=== PATIENT | male | born 1985 | race African-American/Black ===

== ENCOUNTER 2017-05-30 09:28 | Inpatient (IN) | payer OTHER ==
[~2017-05-30] VITALS: Ht 188 cm; Wt 91.0 kg
[2017-05-30] MEDS ORDERED: SODIUM CHLORIDE 0.9% 250ML 250 ML IV STA (09:38)
[2017-05-30] MEDS ORDERED: SODIUM CHLORIDE 0.9% 1000ML 1,000 ML IV STA (09:38)
[2017-05-30] MEDS ORDERED: ASPIRIN 81 MG CHEW PO STA (09:38)
[2017-05-30 10:00] LABS: BASO % 0.3 %; BASO ABS # 0.02 K/uL (0-0.2); COMPLETE YES; EOS % 1.2 %; IG% 0.2 %; LYMPH % 24.5 %; LYMPH ABS # 1.61 K/uL (1.2-3.4); MEAN CELL VOLUME 91.3 fL (80-100); MEAN CORPUSCULAR HEMOGLOBIN 31.2 pg (25-34); MEAN CORPUSCULAR HGB CONC 34.2 g/dl (32-36); MEAN PLATELET VOLUME 8.4 fL (7.4-10.4); MONO % 7.3 %; NEUT % 66.5 %; PLATELET COUNT 233 K/uL (130-400); RED BLOOD COUNT 4.93 M/uL (4.7-6.1); WHITE BLOOD COUNT 6.58 K/uL (4.8-10.8)
--- NOTE | 2017-05-30 10:01 | EMERGENCY ROOM VISIT NOTE ---
History Report prepared by Herb: Judson Mariee Under the Supervision of: Dr. Sammi Friedman M.D. First contact with patient: 09:38 Chief Complaint: SYNCOPE Stated Complaint: SYNCOPE/ [facility] History of Present Illness The patient is a 31 year old male who presents to the Emergency Room from [facility] after an episode of syncope this morning, shortly prior to arrival. The patient states that he was sitting in a truck this morning getting ready to go to work when he lost consciousness and fell out of the vehicle. He hit his left elbow when falling from the truck, but has no other traumatic injuries. He estimates that he was unconscious for roughly 5 minutes. He was not exerting himself prior to the episode, and he experienced no chest pain or shortness of breath at any time. He denies any headache or vomiting at any point as well. 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 A total of 10 systems reviewed and were otherwise negative. Past Medical & Surgical Medical Problems: (1) Syncope No pertinent past medical history Family History Patient denies any family history of cardiac disease. Social History Alcohol Use: none Drug Use: none Housing Status: other ([facility]) Occupation Status: employed ([employer]) Current/Historical Medications No Active Prescriptions or Reported Meds Allergies Coded Allergies: No Known Allergies (Unverified , 05/30/17) Physical Exam Vital Signs Date Time Temp Pulse Resp B/P (MAP) Pulse Ox O2 Delivery O2 Flow Rate FiO2 05/30/17 10:51 100 Room Air 05/30/17 10:08 69 26 100 05/30/17 10:03 65 24 100 05/30/17 10:00 133/87 05/30/17 09:59 127/88 05/30/17 09:58 59 21 116/73 100 05/30/17 09:58 60 116/73 Room Air 73 127/88 73 133/87 69 05/30/17 09:53 68 30 99 05/30/17 09:48 75 20 100 05/30/17 09:43 76 29 99 05/30/17 09:43 36.8 82 30 154/70 99 Room Air 05/30/17 09:43 82 8/14/17 09:39 154/70 Physical Exam Vital signs reviewed. General: Well-appearing young male, in no significant distress. HEENT: No scleral icterus, PERRLA, neck supple. Atraumatic. Cardiovascular: Regular rate and rhythm, no extra sounds. Pulmonary: Clear to auscultation bilaterally, normal work of breathing. Abdomen: Soft, nontender, nondistended, positive bowel sounds. Musculoskeletal: Atraumatic, no peripheral edema. Neurologic: Patient awake alert and oriented x 3, full strength in all 4 extremities. Cranial nerves 2 through 12 grossly intact. Skin: Warm, dry, no rash Medical Decision & Procedures ER Provider Diagnostic Interpretation: Radiology results as stated below per my review and radiologist interpretation: CHEST ONE VIEW PORTABLE CLINICAL HISTORY: CP dyspnea COMPARISON STUDY: No previous studies for comparison. FINDINGS: The bones soft tissues and hemidiaphragms are normal. The cardiomediastinal silhouette is normal. The lungs are clear. The pulmonary vasculature is normal. IMPRESSION: Negative chest. The above report was generated using voice recognition software. It may contain grammatical, syntax or spelling errors. Electronically signed by: Trenton Cameron M.D. 05/30/2017 10:07 AM Dictated Date/Time: 05/30/2017 10:07 AM Laboratory Results 05/30/17 09:46 Test 05/30/17 09:46 05/30/17 09:55 Prothrombin Time 10.5 SECONDS (9.0-12.0) Prothromb Time International Ratio 1.0 (0.9-1.1) Activated Partial Thromboplast Time 27.0 SECONDS (21.0-31.0) Partial Thromboplastin Ratio 1.0 Anion Gap 5.0 mmol/L (3-11) Est Creatinine Clear Calc Drug Dose 105.6 ml/min Estimated GFR () 94.1 Estimated GFR (Non- 81.2 BUN/Creatinine Ratio 14.8 (10-20) Calcium Level 9.1 mg/dl (8.5-10.1) Magnesium Level 1.9 mg/dl (1.8-2.4) Total Bilirubin 0.9 mg/dl (0.2-1) Direct Bilirubin 0.2 mg/dl (0-0.2) Aspartate Amino Transf (AST/SGOT) 35 U/L (15-37) Alanine Aminotransferase (ALT/SGPT) 42 U/L (12-78) Alkaline Phosphatase 110 U/L (45-117) Total Protein 6.8 gm/dl (6.4-8.2) Albumin 3.6 gm/dl (3.4-5.0) Urine Opiates Screen NEG (NEG) Urine Methadone, Qualitative NEG (NEG) Urine Barbiturates NEG (NEG) Urine Phencyclidine (PCP) Level NEG (NEG) Ur Amphetamine/Methamphetamine NEG (NEG) MDMA (Ecstasy) Screen NEG (NEG) Urine Benzodiazepines Screen NEG (NEG) Urine Cocaine Metabolite NEG (NEG) Urine Marijuana (THC) NEG (NEG) Bedside D-Dimer 433 ng/mlFEU (0-450) Bedside Troponin I 0.200 ng/ml (0-0.045) Laboratory results per my review. Medications Administered Medications (Trade) Dose Ordered Sig/Ganesh Route Start Time Stop Time Status Last Admin Dose Admin Aspirin (Aspirin Chew) 324 mg NOW STAT PO 05/30/17 09:38 05/30/17 09:41 DC 05/30/17 10:02 324 MG Sodium Chloride 1,000 ml @ 150 mls/hr [id number] STAT IV 05/30/17 09:38 05/30/17 12:37 DC 05/30/17 10:04 150 MLS/HR Sodium Chloride 1,000 ml @ 75 mls/hr [id number] IV 05/30/17 10:57 05/31/17 21:34 DC 05/31/17 13:37 75 MLS/HR ECG Indication: syncope Rate (beats per minute): 67 Rhythm: normal sinus Findings: no ectopy, other (Right-word axis, J point elevation, early repolarization vs. STEMI) ED Course 0938: Ordered Sodium Chloride 1000 mL @ 150 mL/hr IV, Sodium Chloride 250 mL @ 999 mL/hr IV, Aspirin 324 mg PO. 0947: Past medical records reviewed. The patient was evaluated in room A2. A complete history and physical examination was performed. 1019: Patient's laboratory studies showed an elevated troponin at this time. 1035: I discussed the case with Dr. Lisa Hopkins [facility] hospitalist at this time. She will evaluate the patient for further treatment. Medical Decision Differential diagnosis: Etiologies such as vasovagal event, infection, hypoglycemia, electrolyte abnormalities, cardiac sources, intracerebral event, toxicologic, neurologic, as well as others were entertained. This patient was evaluated and appeared to be in no significant distress. IV access was obtained and laboratory work was drawn. Pt was placed on the threat monitoring analyst. She was given aspirin 324 mg to chew. EKG is concerning for ST elevations, however he has no pain at this time. It is possible that these are J-point elevations and nonischemic. Laboratory work reveals normal electrolytes. Troponin is mildly elevated 0.2. Patient was again evaluated and pain-free. Repeat EKG is similar with no change in morphology. Dr. Joseph of cardiology was consulted. He evaluated the patient in the emergency department. An echo has been ordered at the bedside. The patient was made aware of the findings. He will be evaluated by the hospitalist service for admission and further management. Consults Time Called: 1030 Consulting Physician: Dr. Lisa ROCHA hospitalist Returned Call: 1035 I discussed the case with Dr. Lisa ROCHA hospitallicha at this time. She will evaluate the patient for further treatment. Impression Primary Impression: Syncope Additional Impressions: Elevated troponin ST elevation Scribe Attestation The scribe's documentation has been prepared under my direction and personally reviewed by me in its entirety. I confirm that the note above accurately reflects all work, treatment, procedures, and medical decision making performed by me. Departure Information Dispostion Being Evaluated By Hospitalist Prescriptions No Active Prescriptions or Reported Meds Referrals No Doctor, Assigned (PCP) Patient Instructions My [facility] Problem Qualifiers Primary Impression: Syncope Syncope type: unspecified Qualified Codes: R55 - Syncope and collapse
--- NOTE | 2017-05-30 10:08 | DIAGNOSTIC IMAGING REPORT ---
CHEST ONE VIEW PORTABLE CLINICAL HISTORY: CP dyspnea COMPARISON STUDY: No previous studies for comparison. FINDINGS: The bones soft tissues and hemidiaphragms are normal. The cardiomediastinal silhouette is normal. The lungs are clear. The pulmonary vasculature is normal. IMPRESSION: Negative chest. The above report was generated using voice recognition software. It may contain grammatical, syntax or spelling errors. Electronically signed by: Trenton Cameron M.D. 05/30/2017 10:07 AM Dictated Date/Time: 05/30/2017 10:07 AM
[2017-05-30 10:09] LABS: PROTHROMBIN TIME (PATIENT) 10.5 SECONDS (9.0-12.0)
[2017-05-30 10:14] LABS: POINT OF CARE TROPONIN I 0.2 ng/ml (0-0.045)
[2017-05-30 10:18] LABS: BUN/CREATININE RATIO 14.8 (10-20); CALCIUM 9.1 mg/dl (8.5-10.1); CREATININE 1.2 mg/dl (0.60-1.40); MAGNESIUM 1.9 mg/dl (1.8-2.4); POTASSIUM 4.1 mmol/L (3.5-5.1)
[2017-05-30 10:23] LABS: CKMB/CK RATIO 0.5 (0-3.0)
[2017-05-30 10:51] VITALS: O2SAT 100; Ht 188 cm; Wt 91.0 kg
[2017-05-30] MEDS ORDERED: NITROGLYCERIN 0.4 MG SL PER TAB CHARGE SL PRN (11:00)
[2017-05-30] MEDS ORDERED: ACETAMINOPHEN 325 MG TAB PO PRN (11:00)
[2017-05-30 11:56] LABS: BENZODIAZEPINE, URINE NEG (NEG); COCAINE,URINE NEG (NEG); PHENCYCLIDINE, URINE NEG (NEG)
[2017-05-30 12:14] LABS: CKMB/CK RATIO 0.6 (0-3.0)
--- NOTE | 2017-05-30 12:14 | Medical Student: [facility] ---
Med Student History & Physical Date & Time of Service: May 30, 2017 at 12:08 Chief Complaint: Syncope Primary Care Physician: Zoila JACOB History of Present Illness Source: patient Vanesa is a 31 year old man who presents to the Emergency Room from [facility] after an episode of syncope this morning, shortly prior to arrival. He reports that he was sitting in a truck this morning waiting to start work, took a drink of water, then "things started to go black," and he fell out of the truck onto the ground, landing on his right arm. He reports being unconsciousness for only a few seconds, but had a 5 minute episode of confusion and inability to answer the questions of people around him such as where he was or what his birthday is. He states that he remembers the whole incident. He reported that during this same time, he had weakness in his right hand that resolved by the time he arrived to the ED. He denied headache, chest pain, shortness of breath, palpitations, nausea, vomiting , numbness, paralysis, weakness other than the transient episode in his right hand. Past Medical/Surgical History Medical Problems: (1) Elevated troponin Status: Acute Social History Smoking Status: Current Some Day Smoker (estimates 1 pack every 3 days) Smokeless Tobacco Use: No Alcohol Use: none Drug Use: none Occupational Status: employed ([employer]) Allergies Coded Allergies: No Known Allergies (Unverified , 05/30/17) Medications No Active Prescriptions or Reported Meds Review of Systems Constitutional: No fever, No chills, No sweats Eyes: No worsening of vision, No problem reported ENT: No hearing loss, No problem reported Respiratory: No cough, No shortness of breath Cardiovascular: No chest pain, No palpitations Abdomen: No nausea, No vomiting, No diarrhea, No constipation Musculoskeletal: No joint pain, No muscle pain Genitourinary - Male: No hematuria, No dysuria Neurologic: No paralysis, No weakness, No numbness/tingling Hematologic / Lymphatic: No abnormal bleeding/bruising, No clotting problems Integumentary: No rash, No itch Allergic / Immunologic: No environmental allergies, No seasonal allergies, No food allergies Physical Exam Vital Signs (24 Hours) Last Vital Signs Documentation Date Time Temp Pulse Resp B/P (MAP) Pulse Ox O2 Delivery O2 Flow Rate FiO2 05/30/17 16:00 Room Air 05/30/17 15:41 37.1 53 18 141/96 (111) 98 Date Time Temp Pulse Resp B/P (MAP) Pulse Ox O2 Delivery O2 Flow Rate FiO2 05/30/17 10:51 100 Room Air 05/30/17 10:08 69 26 100 05/30/17 10:03 65 24 100 05/30/17 10:00 133/87 05/30/17 09:59 127/88 05/30/17 09:58 59 21 116/73 100 05/30/17 09:58 60 116/73 Room Air 73 127/88 73 133/87 69 05/30/17 09:53 68 30 99 05/30/17 09:48 75 20 100 05/30/17 09:43 76 29 99 05/30/17 09:43 36.8 82 30 154/70 99 Room Air 05/30/17 09:43 82 05/30/17 09:39 154/70 General Appearance: WD/WN, no apparent distress Head: normocephalic, atraumatic Eyes: normal inspection, PERRL, EOMI ENT: normal ENT inspection, hearing grossly normal, TMs normal, pharynx normal Neck: supple, no adenopathy, no carotid bruits, trachea midline Respiratory/Chest: chest non-tender, lungs clear, normal breath sounds, no respiratory distress, no accessory muscle use Cardiovascular: regular rate, rhythm, no edema, no gallop, no murmur, normal peripheral pulses Abdomen/GI: normal bowel sounds, non tender, no organomegaly, no pulsatile mass Extremities/Musculoskelatal: normal inspection, no calf tenderness, + pertinent finding (tazer gaines on bilateral pretibial area, abrasions right elbow) Neurologic/Psych: crew clerk II-XII nml as tested, no motor/sensory deficits, alert, normal mood/affect, normal reflexes, oriented x 3 Skin: normal color, warm/dry, no rash Diagnostics Laboratory Results Test 05/30/17 09:46 05/30/17 09:55 05/30/17 11:31 White Blood Count 6.58 Red Blood Count 4.93 Hemoglobin 15.4 Hematocrit 45.0 Mean Corpuscular Volume 91.3 Mean Corpuscular Hemoglobin 31.2 Mean Corpuscular Hemoglobin Concent 34.2 Platelet Count 233 Mean Platelet Volume 8.4 Neutrophils (%) (Auto) 66.5 Lymphocytes (%) (Auto) 24.5 Monocytes (%) (Auto) 7.3 Eosinophils (%) (Auto) 1.2 Basophils (%) (Auto) 0.3 Neutrophils # (Auto) 4.38 Lymphocytes # (Auto) 1.61 Monocytes # (Auto) 0.48 Eosinophils # (Auto) 0.08 Basophils # (Auto) 0.02 RDW Standard Deviation 42.1 RDW Coefficient of Variation 12.6 Immature Granulocyte % (Auto) 0.2 Immature Granulocyte # (Auto) 0.01 Prothrombin Time 10.5 Prothrombin Time INR 1.0 PTT 27.0 Partial Thromboplastin Ratio 1.0 Sodium Level 140 Potassium Level 4.1 Chloride Level 106 Carbon Dioxide Level 29 Anion Gap 5.0 Blood Urea Nitrogen 18 Creatinine 1.20 Est Creatinine Clear Calc Drug Dose 105.6 Estimated GFR () 94.1 Estimated GFR (Non- 81.2 BUN/Creatinine Ratio 14.8 Random Glucose 87 Calcium Level 9.1 Magnesium Level 1.9 Total Bilirubin 0.9 Direct Bilirubin 0.2 Aspartate Amino Transferase (AST) 35 Alanine Aminotransferase (ALT) 42 Alkaline Phosphatase 110 Total Creatine Kinase 735 713 Creatine Kinase MB 3.7 4.4 Creatine Kinase MB Ratio 0.5 0.6 Total Protein 6.8 Albumin 3.6 Urine Opiates Screen NEG Urine Methadone, Qualitative NEG Urine Barbiturates NEG Urine Phencyclidine (PCP) Level NEG Ur Amphetamine/Methamphetamine NEG MDMA (Ecstasy) Screen NEG Urine Benzodiazepines Screen NEG Urine Cocaine Metabolite NEG Urine Marijuana (THC) NEG POC D-Dimer 433 POC Troponin I 0.200 Troponin I 0.275 Results Past 24 Hours Test 05/30/17 09:46 05/30/17 09:55 05/30/17 10:57 05/30/17 11:31 Range/Units White Blood Count 6.58 4.8-10.8 K/uL Red Blood Count 4.93 4.7-6.1 M/uL Hemoglobin 15.4 14.0-18.0 g/dL Hematocrit 45.0 42-52 % Mean Corpuscular Volume 91.3 80-100 fL Mean Corpuscular Hemoglobin 31.2 25-34 pg Mean Corpuscular Hemoglobin Concent 34.2 32-36 g/dl Platelet Count 233 130-400 K/uL Mean Platelet Volume 8.4 7.4-10.4 fL Neutrophils (%) (Auto) 66.5 % Lymphocytes (%) (Auto) 24.5 % Monocytes (%) (Auto) 7.3 % Eosinophils (%) (Auto) 1.2 % Basophils (%) (Auto) 0.3 % Neutrophils # (Auto) 4.38 1.4-6.5 K/uL Lymphocytes # (Auto) 1.61 1.2-3.4 K/uL Monocytes # (Auto) 0.48 0.11-0.59 K/uL Eosinophils # (Auto) 0.08 0-0.5 K/uL Basophils # (Auto) 0.02 0-0.2 K/uL RDW Standard Deviation 42.1 36.4-46.3 fL RDW Coefficient of Variation 12.6 11.5-14.5 % Immature Granulocyte % (Auto) 0.2 % Immature Granulocyte # (Auto) 0.01 0.00-0.02 K/uL Prothrombin Time 10.5 9.0-12.0 SECONDS Prothromb Time International Ratio 1.0 0.9-1.1 Activated Partial Thromboplast Time 27.0 21.0-31.0 SECONDS Partial Thromboplastin Ratio 1.0 Sodium Level 140 136-145 mmol/L Potassium Level 4.1 3.5-5.1 mmol/L Chloride Level 106 98-107 mmol/L Carbon Dioxide Level 29 21-32 mmol/L Anion Gap 5.0 3-11 mmol/L Blood Urea Nitrogen 18 7-18 mg/dl Creatinine 1.20 0.60-1.40 mg/dl Est Creatinine Clear Calc Drug Dose 105.6 ml/min Estimated GFR () 94.1 Estimated GFR (Non- 81.2 BUN/Creatinine Ratio 14.8 10-20 Random Glucose 87 70-99 mg/dl Calcium Level 9.1 8.5-10.1 mg/dl Magnesium Level 1.9 1.8-2.4 mg/dl Total Bilirubin 0.9 0.2-1 mg/dl Direct Bilirubin 0.2 0-0.2 mg/dl Aspartate Amino Transf (AST/SGOT) 35 15-37 U/L Alanine Aminotransferase (ALT/SGPT) 42 12-78 U/L Alkaline Phosphatase 110 45-117 U/L Total Creatine Kinase 735 39-308 U/L Creatine Kinase MB 3.7 0.5-3.6 ng/ml Creatine Kinase MB Ratio 0.5 0-3.0 Total Protein 6.8 6.4-8.2 gm/dl Albumin 3.6 3.4-5.0 gm/dl Urine Opiates Screen NEG NEG Urine Methadone, Qualitative NEG NEG Urine Barbiturates NEG NEG Urine Phencyclidine (PCP) Level NEG NEG Ur Amphetamine/Methamphetamine NEG NEG MDMA (Ecstasy) Screen NEG NEG Urine Benzodiazepines Screen NEG NEG Urine Cocaine Metabolite NEG NEG Urine Marijuana (THC) NEG NEG Bedside D-Dimer 433 0-450 ng/mlFEU Bedside Troponin I 0.200 0-0.045 ng/ml Diagnostic Radiology Echocardiogram 1. Normal left ventricular size with low-normal systolic function. Estimated EF 55%. No regional wall motion abnormalities. Mild left ventricular hypertrophy. No significant diastolic dysfunction. 2. No significant valvular abnormalities. 3. Normal estimated right ventricular systolic pressure; 20 mm Hg. 4. No prior study available for comparison. CXR normal EKG ST elevations in V2-V5 Sinus Bradycardia Impression Assessment and Plan Vanesa Li is a 31 year old male with no past medical history admitted for evaluation of syncope and elevated troponin levels. 1. Syncope Vasovagal etiology: Patient denies coughing, vomiting, defecation, urination at time of syncope, observed needle stick in his own arm without an adverse reaction Orthostatic: Orthostatic vital signs normal Cardiovascular: Elevated [id number] troponin is 0.2 on admission, most recent is 0.275. -CK-MB 3.7 on admission to 4.4 most recent. -CPK 735 trending down to 713 -Tox screen negative, making cocaine induced vasospasm unlikely. His only other risk factor for coronary artery disease is smoking. -Echocardiogram revealed EF of 55% and no major structural abnormalities, HCOM unlikely -Nonspecific ECG changes, obtain routine ECG -Admit to telemetry: If nothing is found on telemetry, consider an event monitor, although this may prove difficult with the patients status of being an inmate consider cardiac Catheterization if patients develops chest pain or if troponin trends upwards -Start aspirin 81mg Daily Neurologic: Unlikely etiology given age, negative past medical history of DM, CVA, 2. Right elbow abrasion -exam negative for evidence of fracture. Full strength and ROM -Keep wound clean and covered -consider xray if has worsening pain 3. Current Smoker -assistant counsel on smoking cessation -do not provide nicotine patch due to risk of excess catecholamines DVT Prophylaxis- heparin subcutaneous and SCDs Disposition- back to [facility] when medically stable, approximately 1-2 days Level of Care Telemetry Advanced Directives Existing Living Will: No Existing Power of Dental Hygienist Mobile Coordinator: No Resuscitation Status FULL RESUSCITATION DVT Prophylaxis unfractionated heparin SQ
[2017-05-30 12:18] VITALS: BP 139/84; PULSE 60; TEMP 36.9; O2SAT 95
--- NOTE | 2017-05-30 13:01 | ECHOCARDIOGRAM REPORT ---
*NOTICE TO RECEIVING [employer] This information is strictly Confidential and protected under [place] law. [place] law prohibits you from making any further disclosure of this information unless further disclosure is expressly permitted by the written consent of the person to whom it pertains or is authorized by law. A general authorization for the release of medical or other information is not sufficient for this purpose. Hospital accepts no responsibility if the information is made available to any other person, INCLUDING THE PATIENT. Interpretation Summary * Name: JAY GALVEZ [id number] Study Date: 05/30/2017 10:58 AM BP: 133/87 mmHg * Patient Location: ED HR: 69 * : 1985 (M/d/yyyy) Gender: Male Height: 74 in * Age: 31 yrs Ethnicity: AA Weight: 215 lb * Referring Physician: WESTON * Performed By: Kristyn Posey RDCS * * Reason For Study: SYNCOPE * BSA: 2.2 m2 * -- Conclusions -- * 1. Normal left ventricular size with low-normal systolic function. Estimated EF 55%. No regional wall motion abnormalities. Mild left ventricular hypertrophy. No significant diastolic dysfunction. * 2. No significant valvular abnormalities. * 3. Normal estimated right ventricular systolic pressure; 20 mm Hg. * 4. No prior study available for comparison. Procedure Details * A complete two-dimensional transthoracic echocardiogram was performed (2D, M-mode, Doppler and color flow Doppler). Left Ventricle * Normal left ventricular size with low-normal systolic function. Estimated EF 55%. No regional wall motion abnormalities. Mild left ventricular hypertrophy. No significant diastolic dysfunction. Right Ventricle * The right ventricle is normal in size and function. * The right ventricular systolic function is normal as assessed by tricuspid annular plane systolic excursion (TAPSE) (normal >1.5 cm). Atria * The left atrial size is normal. * Right atrial size is normal. * There is no evidence of atrial septal defect, but resolution does not allow assessment for a patent foramen ovale. Mitral Valve * The mitral valve leaflets appear normal. There is no evidence of stenosis, fluttering, or prolapse. * There is trace mitral regurgitation. Tricuspid Valve * The tricuspid valve is not well visualized, but is grossly normal. * There is no tricuspid stenosis. * There is trace tricuspid regurgitation. Aortic Valve * The aortic valve is trileaflet. * No hemodynamically significant valvular aortic stenosis. * No aortic regurgitation is present. Pulmonic Valve * The pulmonary valve is inadequately visualized, but the Doppler data is adequate for interpretation. * There is no pulmonic valvular stenosis. * There is no significant pulmonary regurgitation. Great Vessels * The aortic root is normal size. Pericardium/Pleural * There is no pericardial effusion. Great Vessels * Normal inferior vena cava size and collapsability with sniff indicates a normal right atrial pressure of 3 mmHg MMode 2D Measurements and Calculations IVSd 1.1 cm IVSs 1.6 cm LVIDd 4.9 cm LVIDs 3.3 cm LVPWd 1.3 cm LVPWs 1.9 cm IVS/LVPW 0.87 FS 33.3 % EDV(Teich) 114.4 ml ESV(Teich) 43.7 ml EF(Teich) 61.8 % EDV(cubed) 119.8 ml ESV(cubed) 35.5 ml EF(cubed) 70.4 % % IVS thick 46.2 % % LVPW thick 47.1 % LV mass(C)d 226.8 grams LV mass(C)dI 101.2 grams/m\S\2 LV mass(C)s 231.2 grams LV mass(C)sI 103.2 grams/m\S\2 SV(Teich) 70.7 ml SI(Teich) 31.6 ml/m\S\2 SV(cubed) 84.3 ml SI(cubed) 37.6 ml/m\S\2 Ao root diam 3.1 cm Ao root area 7.3 cm\S\2 LA dimension 3.3 cm LA/Ao 1.1 LVAd ap4 42.4 cm\S\2 LVLd ap4 9.8 cm EDV(MOD-sp4) 153.6 ml EDV(sp4-el) 155.9 ml LVAs ap4 27.1 cm\S\2 LVLs ap4 8.7 cm ESV(MOD-sp4) 73.9 ml ESV(sp4-el) 71.4 ml EF(MOD-sp4) 51.9 % EF(sp4-el) 54.2 % LVAd ap2 45.5 cm\S\2 LVLd ap2 10.4 cm EDV(MOD-sp2) 171.0 ml EDV(sp2-el) 168.6 ml LVAs ap2 26.5 cm\S\2 LVLs ap2 8.5 cm ESV(MOD-sp2) 72.5 ml ESV(sp2-el) 70.0 ml EF(MOD-sp2) 57.6 % EF(sp2-el) 58.5 % LVLd %diff 6.0 % EDV(MOD-bp) 165.9 ml LVLs %diff -2.49 % ESV(MOD-bp) 73.9 ml EF(MOD-bp) 55.4 % SV(MOD-sp4) 79.7 ml SI(MOD-sp4) 35.5 ml/m\S\2 SV(MOD-sp2) 98.5 ml SI(MOD-sp2) 43.9 ml/m\S\2 SV(MOD-bp) 91.9 ml SI(MOD-bp) 41.0 ml/m\S\2 SV(sp4-el) 84.5 ml SI(sp4-el) 37.7 ml/m\S\2 SV(sp2-el) 98.5 ml SI(sp2-el) 44.0 ml/m\S\2 Doppler Measurements and Calculations MV E max carissa 73.5 cm/sec MV A max carissa 33.1 cm/sec MV E/A 2.2 MV dec time 0.26 sec Ao V2 max 124.2 cm/sec Ao max PG 6.2 mmHg Ao max PG (full) 3.0 mmHg LV V1 max PG 3.2 mmHg LV V1 max 88.8 cm/sec TV E max carissa 55.8 cm/sec TR max carissa 207.6 cm/sec RVSP(TR) 20.2 mmHg RAP systole 3.0 mmHg
[2017-05-30] MEDS: SODIUM CHLORIDE 0.9% 1000ML 1,000 ML IV SCH (14:19)
[2017-05-30] MEDS: HEPARIN SOD 5000 UNIT/0.5 ML CARP SQ SCH ×2 (14:20→21:38)
--- NOTE | 2017-05-30 15:19 | CARDIOLOGY CONSULTATION ---
DATE OF CONSULTATION: 05/30/2017 TIME: 14:32 p.m. CONSULTING PHYSICIAN: Dr. Friedman of the Emergency Department and also Dr. Gonzalez of the hospitalist service. REASON FOR CONSULTATION: Syncope, elevated troponin and abnormal ECG. HISTORY OF PRESENT ILLNESS: Mr. Farley is a pleasant 31-year-old gentleman who was evaluated in the Emergency Department this morning at approximately 10:40 a.m. for a recent episode of syncope with ST elevations on ECG and mildly elevated troponin levels. He states that he has no significant past medical history and denies taking any medications. He is currently incarcerated at [facility] and was sitting in a pickup truck earlier this morning is completely asymptomatic before he had a syncopal event. The truck was at rest but the door was opened and he fell out of the truck. It was witnessed by guards and reported that he was unconscious/unresponsive for approximately 5 minutes. He denies any presyncopal symptoms such as chest discomfort, shortness of breath, palpitations, lightheadedness or any other symptom. When he awakened, he states that his right arm was a bit numb and he had trouble talking. These symptoms resolved within a few minutes and he felt back to his usual self. He is completely asymptomatic currently. While asymptomatic, he had an ECG done and was found to have anterolateral ST elevations, which remained on an ECG repeated approximately 45 minutes later. His heart rate at the time EMS evaluated him was reported to 74 beats per minute with a blood pressure 172/84 mmHg, and an oxygen saturation of 97% on room air. He remains asymptomatic and denies chest pain, shortness of breath, palpitations, edema, leg pain, nausea, vomiting, abdominal pain, diarrhea, melena, hematochezia, hematuria. He exercises regularly, lifting weights and playing sports such as basketball and hand ball. He denies any exertional symptoms with his usual activities for him. He did have gastrointestinal issues for approximately 5 days in the first week of April. He had nausea and vomiting. He states that he was told that it was food poisoning, but these symptoms have since completely resolved. He denies a history of syncope. He denies any recent drug use such as cocaine and also denies alcohol. REVIEW OF SYSTEMS: As above and review of systems otherwise negative and unremarkable. PAST MEDICAL HISTORY: None, according to patient. HOME MEDICATIONS: None. SOCIAL HISTORY: He smokes tobacco products since age 16. He states that he rolls his own cigarettes and 1 pack of tobacco lasts for 3 days. He denies alcohol. He denies drug abuse. He is originally from [place]. He has been incarcerated for approximately 4 years and hopes be released in approximately 1 year. FAMILY HISTORY: No known premature CAD in first degree relatives. No known sudden cardiac . PHYSICAL EXAMINATION: VITAL SIGNS: Temperature 36.9 degrees, heart rate 60 beats per minute, respiration rate 18, blood pressure 139/84 mmHg, oxygen saturation 95-100% on room air. Weight 97.8 kg. GENERAL: In no acute distress. He is alert and oriented. HEENT: Anicteric sclerae. NECK: No appreciable JVD. No bruits. Normal carotid upstrokes bilaterally. CARDIAC: PMI was not displaced. There was no ventricular heave. Regular, normal S1, S2. No audible murmurs, rubs or gallops. LUNGS: Clear to auscultation bilaterally without wheezes, rales or rhonchi. ABDOMEN: Soft, nontender, nondistended, normoactive bowel sounds, no bruits noted. EXTREMITIES: No cyanosis or edema. No palpable cords. 2+ radial pulses bilaterally. 2+ dorsalis pedis pulses bilaterally. PSYCHIATRIC: Affect appears appropriate. IMAGING DATA: ECGs personally reviewed. ECG at 9:37 a.m. - normal sinus rhythm at 67 beats per minute. Anterolateral ST elevation. Repeat ECG at 10:21 a.m. demonstrated sinus bradycardia at 56 beats per minute. Anterolateral ST elevations were noted. Prehospital ECG is also reviewed with anterolateral ST elevation. Chest x-ray image personally reviewed and no infiltrate. Radiology has interpreted this as negative chest x-ray. LABORATORY DATA: White blood cell count 6.58, hemoglobin 15.4, platelets 233. Sodium 140, potassium 4.1, BUN 18, creatinine 1.2. CK-MB 4.4. Troponin point of care 0.2 and repeat troponin was 0.275. Albumin 3.6, AST 35, ALT 42, magnesium 1.9. INR 1. D-dimer negative. Tox screen was ordered and negative. ASSESSMENT AND PLAN: 1. Syncope: Etiology uncertain. He had no symptoms prior to his episode to suggest vasovagal. He had been eating and drinking his usual amount of oral intake and therefore hypovolemia does not appear to be the cause. Arrhythmia is a possibility. Recommend continue his telemetry. We will also discuss with electrophysiology about potential for a loop recorder or other monitoring. No significant structural findings on echocardiogram. 2. Elevated troponins: Would recommend trending troponins until peaked. He has no anginal symptoms. He is very active and his only risk factor for coronary disease that is known at this time is tobacco abuse. It is not likely that he has significant ischemic heart disease. No urgent indication for cardiac catheterization, given the fact that he is completely asymptomatic at this time. We did discuss risks and benefits of cardiac catheterization and would further consider this if his troponins become significantly elevated or if he should have symptoms of angina. Elevation of his troponin is may be of his syncopal event if he was hypotensive or if he had arrhythmia. Continue to follow. 3. Abnormal electrocardiogram: He does have ST elevations in the anterolateral leads which may represent early repolarization, especially given the fact that he is completely asymptomatic and these elevations are persistent despite no regional wall motion abnormalities on echo. Repeat electrocardiogram later today. 4. Disposition: Cardiology will continue to follow. Plan of care has been discussed with Dr. Gonzalez of the primary hospitalist service. Thank you for allowing me to participate in care of Mr. Li. ANGELES
[2017-05-30 15:41] VITALS: BP 141/96; PULSE 53; TEMP 37.1; O2SAT 98
[2017-05-30 18:52] LABS: CKMB/CK RATIO 0.4 (0-3.0)
[2017-05-30 19:54] VITALS: BP 132/81; PULSE 60; TEMP 36.7; O2SAT 97
--- NOTE | 2017-05-30 21:36 | History and Physical ---
History & Physical Date & Time of Service: May 30, 2017 at 10:48 Chief Complaint: Syncope/ Sci [facility] Primary Care Physician: Zoila JACOB History of Present Illness Source: patient The patient is a 31 year old male with no current medical problems who presents to the Emergency Room from [facility] after an episode of syncope this morning, shortly prior to arrival. The patient states that he was sitting in a truck this morning getting ready to go to work when he lost consciousness and fell out of the vehicle. He hit his left elbow when falling from the truck, but has no other traumatic injuries. He estimates that he was unconscious for roughly 5 minutes, but then says he clearly remembers all the events, not sure if he completely passed out. He was not exerting himself prior to the episode, and he experienced no chest pain or shortness of breath. Denies palpitations. He denies any headache or vomiting at any point as well. He reports initially when he woke up he had trouble gripping with his left hand because of his elbow injury but that quickly resolved. He had no other weakness anywhere else. He was able to get up and walk over to the stretcher for the EMS. Past Medical/Surgical History Past medical history: Current Smoker Past surgical history: None Family History None significant that he is aware of Social History Smoking Status: Current Every Day Smoker (since age 16, about a pack every 3 days) Alcohol Use: none Drug Use: none Housing status: other (incarcerated) Occupational Status: employed ([employer]) Allergies Coded Allergies: No Known Allergies (Unverified , 05/30/17) Home Medications No Active Prescriptions or Reported Meds Review of Systems Constitutional: No fever, No chills Eyes: No problem reported ENT: No problem reported Respiratory: No shortness of breath Cardiovascular: No chest pain, No edema, No palpitations Abdomen: No pain, No nausea, No diarrhea, No constipation Musculoskeletal: No problem reported Genitourinary - Male: No problem reported Neurologic: No problem reported Psychiatric: No problem reported Endocrine: No problem reported Hematologic / Lymphatic: No problem reported Integumentary: No problem reported Allergic / Immunologic: No problem reported Physical Exam Vital Signs Date Time Temp Pulse Resp B/P (MAP) Pulse Ox O2 Delivery O2 Flow Rate FiO2 05/30/17 10:08 69 26 100 05/30/17 10:03 65 24 100 05/30/17 10:00 133/87 05/30/17 09:59 127/88 05/30/17 09:58 59 21 116/73 100 05/30/17 09:58 60 116/73 Room Air 73 127/88 73 133/87 69 05/30/17 09:53 68 30 99 05/30/17 09:48 75 20 100 05/30/17 09:43 76 29 99 05/30/17 09:43 36.8 82 30 154/70 99 Room Air 05/30/17 09:43 82 05/30/17 09:39 154/70 General Appearance: WD/WN, no apparent distress Head: normocephalic, atraumatic Eyes: normal inspection, PERRL, EOMI, sclerae normal ENT: hearing grossly normal, pharynx normal Neck: supple, no adenopathy, no carotid bruits, trachea midline Respiratory/Chest: lungs clear, normal breath sounds, no respiratory distress, no accessory muscle use Cardiovascular: regular rate, rhythm, no edema, no gallop, no JVD, no murmur, normal peripheral pulses Abdomen/GI: normal bowel sounds, non tender, soft, no organomegaly, no pulsatile mass Back: normal inspection ( ) Extremities/Musculoskelatal: normal inspection, no calf tenderness, normal capillary refill, no pedal edema, normal range of motion, + pertinent finding ( right elbow without tenderness to palpation, with full range of motion, no pain with resisted pronation or supination as well as wrist extension or flexion or elbow extension or flexion) Neurologic/Psych: alert, normal mood/affect, oriented x 3 Skin: normal color, warm/dry, + pertinent finding (superficial abrasion over the right lateral elbow not actively bleeding) Lymphatic: no adenopathy Diagnostics Laboratory Results Results Past 24 Hours Test 05/30/17 09:46 05/30/17 09:55 Range/Units White Blood Count 6.58 4.8-10.8 K/uL Red Blood Count 4.93 4.7-6.1 M/uL Hemoglobin 15.4 14.0-18.0 g/dL Hematocrit 45.0 42-52 % Mean Corpuscular Volume 91.3 80-100 fL Mean Corpuscular Hemoglobin 31.2 25-34 pg Mean Corpuscular Hemoglobin Concent 34.2 32-36 g/dl Platelet Count 233 130-400 K/uL Mean Platelet Volume 8.4 7.4-10.4 fL Neutrophils (%) (Auto) 66.5 % Lymphocytes (%) (Auto) 24.5 % Monocytes (%) (Auto) 7.3 % Eosinophils (%) (Auto) 1.2 % Basophils (%) (Auto) 0.3 % Neutrophils # (Auto) 4.38 1.4-6.5 K/uL Lymphocytes # (Auto) 1.61 1.2-3.4 K/uL Monocytes # (Auto) 0.48 0.11-0.59 K/uL Eosinophils # (Auto) 0.08 0-0.5 K/uL Basophils # (Auto) 0.02 0-0.2 K/uL RDW Standard Deviation 42.1 36.4-46.3 fL RDW Coefficient of Variation 12.6 11.5-14.5 % Immature Granulocyte % (Auto) 0.2 % Immature Granulocyte # (Auto) 0.01 0.00-0.02 K/uL Prothrombin Time 10.5 9.0-12.0 SECONDS Prothromb Time International Ratio 1.0 0.9-1.1 Activated Partial Thromboplast Time 27.0 21.0-31.0 SECONDS Partial Thromboplastin Ratio 1.0 Sodium Level 140 136-145 mmol/L Potassium Level 4.1 3.5-5.1 mmol/L Chloride Level 106 98-107 mmol/L Carbon Dioxide Level 29 21-32 mmol/L Anion Gap 5.0 3-11 mmol/L Blood Urea Nitrogen 18 7-18 mg/dl Creatinine 1.20 0.60-1.40 mg/dl Est Creatinine Clear Calc Drug Dose 105.6 ml/min Estimated GFR () 94.1 Estimated GFR (Non- 81.2 BUN/Creatinine Ratio 14.8 10-20 Random Glucose 87 70-99 mg/dl Calcium Level 9.1 8.5-10.1 mg/dl Magnesium Level 1.9 1.8-2.4 mg/dl Total Bilirubin 0.9 0.2-1 mg/dl Direct Bilirubin 0.2 0-0.2 mg/dl Aspartate Amino Transf (AST/SGOT) 35 15-37 U/L Alanine Aminotransferase (ALT/SGPT) 42 12-78 U/L Alkaline Phosphatase 110 45-117 U/L Total Creatine Kinase 735 39-308 U/L Creatine Kinase MB 3.7 0.5-3.6 ng/ml Creatine Kinase MB Ratio 0.5 0-3.0 Total Protein 6.8 6.4-8.2 gm/dl Albumin 3.6 3.4-5.0 gm/dl Bedside D-Dimer 433 0-450 ng/mlFEU Bedside Troponin I 0.200 0-0.045 ng/ml CXR normal (and image personally reviewed by me) EKG ECG with possible ST elevation in the lateral leads versus J-point elevation with some nonspecific T-wave changes in the inferior leads only 3 and aVF, rightward axis deviation Repeat ECG very similar except with sinus bradycardia No prior EKG available Impression Assessment and Plan This patient is a 31-year-old otherwise healthy male who presented with syncope without any prodromal symptoms. Syncope, nonspecific ECG changes, elevated troponin-needs work up for syncope to include ruling out ventricular arrhythmias as a cause. He is completely asymptomatic otherwise. D-dimer is negative and without absence of hypoxia, tachycardia, or chest pain, the likelihood of pulmonary embolism is next to nothing. Orthostatic vital signs in the ER are normal. Elevated [id number] troponin is 0.2 on admission, CK-MB and CPK also elevated. Discussed the case with cardiology in the ER. A heart alert will not be called at this time as patient is completely asymptomatic. Risk for coronary artery disease is quite low and his only risk factor is smoking. -Monitor on telemetry -Trend serial troponin including a repeat stat troponin right now -Appreciate cardiology consult -Check echocardiogram for structural abnormalities such as HOCM -Consider cardiac catheterization if troponin trends upward or if develops chest pain -start ASA 81mg daily -consider starting heparin gtt and beta emmanuel if next troponin elevated and remains CP-free; otherwise right to chemical laboratory chief -if nothing found on tele, consider parts counterman event monitoring although may prove difficult at the retirement-consider loop recorder Right elbow abrasion/injury- no evidence on exam for fracture -keep wound clean and covered as per staff development educator -consider xray if has worsening pain Current Smoker- will teen counselor on smoking cessation -will NOT provide nicotine patch currently as may be having acute NV and want to suppress catecholamines Prophylaxis-heparin and SCDs for DVT Disposition-back to retirement when medically stable, in 1-2 days Level of Care Telemetry Resuscitation Status FULL RESUSCITATION VTE Prophylaxis VTE Risk Assessment Done? Y/N: Yes Risk Level: Low Given or contraindicated: Unfractionated heparin SQ Social Service Consult None Apply Additional Copies To [facility]
[2017-05-30 23:06] VITALS: BP 129/79; PULSE 63; TEMP 36.9; O2SAT 97
[2017-05-31] VITALS (8 sets, daily range): BP systolic 117–166; BP diastolic 70–96; PULSE 42–71; TEMP 36.5–37; O2SAT 96–98
[2017-05-31 00:09] LABS: CKMB/CK RATIO 0.4 (0-3.0)
[2017-05-31] MEDS: SODIUM CHLORIDE 0.9% 1000ML 1,000 ML IV SCH ×2 (00:11→13:37)
[2017-05-31 05:00] LABS: BASO % 0.4 %; BASO ABS # 0.02 K/uL (0-0.2); COMPLETE YES; EOS % 1.9 %; HEMATOCRIT 42.1 % (42-52); IG% 0.2 %; LYMPH % 35.1 %; LYMPH ABS # 1.87 K/uL (1.2-3.4); MEAN CELL VOLUME 90.3 fL (80-100); MEAN CORPUSCULAR HEMOGLOBIN 31.8 pg (25-34); MEAN CORPUSCULAR HGB CONC 35.2 g/dl (32-36); MEAN PLATELET VOLUME 8.5 fL (7.4-10.4); MONO % 10.3 %; NEUT % 52.1 %; PLATELET COUNT 203 K/uL (130-400); RED BLOOD COUNT 4.66 M/uL (4.7-6.1); WHITE BLOOD COUNT 5.33 K/uL (4.8-10.8)
[2017-05-31 05:35] LABS: CKMB/CK RATIO 0.4 (0-3.0)
[2017-05-31] MEDS: HEPARIN SOD 5000 UNIT/0.5 ML CARP SQ SCH ×3 (05:55→20:59)
[2017-05-31] MEDS: ASPIRIN 81 MG ECTAB PO SCH (08:10)
[2017-05-31] MEDS ORDERED: SODIUM CHLORIDE 0.9% 1000ML 1,000 ML IV ONE (10:00)
--- NOTE | 2017-05-31 12:04 | Cardiology Consultation ---
Cardiology Consultation Date of Consultation: May 31, 2017. Requesting Physician: Dr. Joseph Reason for Consultation: Syncope Pt evaluation today including: conversation w/ patient, physical exam, lab review, review of studies, review of inpatient medication list History of Present Illness This is a very pleasant and very physically active incarcerated gentleman. He presented with an episode of syncope on 05/30/2017. He has never had syncope before, he was feeling normal when he was sitting in it truck, took a drink of water and then fell out of the truck. He doesn't remember much else except that he heard people talking to him and was having trouble answering. He thinks it only was a few minutes before he felt normal again although his colleagues kept him on the ground until the ambulance came. Apparently it was witnessed by guards who reported that he was unresponsive for approximately 5 minutes, and there is no evidence of seizure activity. He reports no palpitations either during this episode or in the past, no chest discomfort, no shortness of breath and no presyncopal events in the past. On evaluation in the emergency room he was hypertensive, his electrocardiogram showed inferior T-wave inversion in anterolateral ST elevation but not suggestive of an acute myocardial infarction. Echocardiography did not show wall motion abnormalities and he had a low normal left ventricular function. Cardiac enzymes were abnormal with a point of care troponin of 0.2 at around 10 AM, at 11 AM on a regular blood test the troponin was 0.275 and then a decrease over the next 3 measurements to 0.162 at 4 AM today. CPK was also elevated, 713 shortly after arrival in the ER and 423 this morning. At the time of my evaluation this morning he feels well, he is having no chest discomfort, no shortness of breath and has had no palpitations. He notes that his exercise ability has been unchanged and he has been quite active physically. Social History Smoking Status: Current Every Day Smoker (since age 16, about a pack every 3 days) History of Alcohol Use: No Review of Systems Constitutional: No fever, No weight loss, No weakness Respiratory: No cough, No wheezing, No shortness of breath, No dyspnea on exertion Cardiac: + see HPI, No chest pain, No orthopnea, No PND, No edema, No palpitations Abdomen: No pain, No nausea, No vomiting, No diarrhea, No GI bleeding Male : No urinary frequency, No nocturia more than once/night, No slowing stream, No sexual dysfunction Neurologic: No paralysis, No weakness, No numbness/tingling, No balance problems Heme: No abnormal bleeding/bruising, No clotting problems Endo: No fatigue Skin: No problem reported All Other Systems: Reviewed and Negative Allergies Coded Allergies: No Known Allergies (Unverified , 05/30/17) Medications Current Inpatient Medications Medications (Trade) Dose Ordered Sig/Ganesh Route Start Time Stop Time Status Last Admin Dose Admin Heparin Sodium (Porcine) (Heparin Sq 5000 Unit/0.5ml) 5,000 unit Q8 SQ 05/30/17 14:00 06/29/17 13:59 05/31/17 05:55 5,000 UNIT Sodium Chloride 1,000 ml @ 75 mls/hr [id number] IV 05/30/17 10:57 06/29/17 10:56 05/31/17 00:11 75 MLS/HR Acetaminophen (Tylenol Tab) 650 mg Q4H PRN PO 05/30/17 11:00 06/29/17 10:59 Nitroglycerin (Nitrostat Tab) 0.4 mg UD PRN SL 05/30/17 11:00 06/29/17 10:59 Aspirin (Ecotrin Tab) 81 mg QAM PO 05/31/17 09:00 06/30/17 08:59 05/31/17 08:10 81 MG Sodium Chloride 1,000 ml @ 15 mls/hr Q24H ONCE IV 05/31/17 10:00 06/01/17 09:59 05/31/17 10:17 15 MLS/HR Physical Exam Vital Signs Past 12 Hours Date Time Temp Pulse Resp B/P (MAP) Pulse Ox O2 Delivery O2 Flow Rate FiO2 05/31/17 11:36 37.0 54 18 126/70 (88) 97 Room Air 05/31/17 08:00 97 Room Air 05/31/17 07:24 36.5 49 18 117/70 (86) 97 Room Air 05/31/17 04:00 Room Air 05/31/17 02:48 36.8 62 17 144/79 (100) 97 Room Air 05/31/17 00:00 Room Air Constitutional: General Apperance: heathly-appearing Level of Distress: NAD Psychiatric: Mental Status: active & alert Head: normocephalic Eyes: EOM: EOMI ENMT: normal ENT inspection, hearing grossly normal Neck: supple, no masses Lungs: Respiratory effort: no dyspnea, good air movement Auscultation: breath sounds normal, no wheezing Cardiovascular: Heart Auscultation: RRR, no murmurs, no rubs, no gallops Peripheral Pulses: Bruits: none appreciated Abdomen: Bowel Sounds: normal Inspection & Palpation: soft, no tenderness, guarding & rebound, no masses Musculoskeletal: normal strength (5/5 throughout) Extremities: no edema Neurologic: Cranial Nerves: grossly intact Sensation: grossly intact Data Laboratory Results: Last 24 Hours Test 05/30/17 17:15 05/30/17 23:04 05/31/17 04:37 Total Creatine Kinase 603 U/L 473 U/L 423 U/L Creatine Kinase MB 2.5 ng/ml 1.9 ng/ml 1.6 ng/ml Creatine Kinase MB Ratio 0.4 0.4 0.4 Troponin I 0.206 ng/ml 0.176 ng/ml 0.162 ng/ml White Blood Count 5.33 K/uL Red Blood Count 4.66 M/uL Hemoglobin 14.8 g/dL Hematocrit 42.1 % Mean Corpuscular Volume 90.3 fL Mean Corpuscular Hemoglobin 31.8 pg Mean Corpuscular Hemoglobin Concent 35.2 g/dl Platelet Count 203 K/uL Mean Platelet Volume 8.5 fL Neutrophils (%) (Auto) 52.1 % Lymphocytes (%) (Auto) 35.1 % Monocytes (%) (Auto) 10.3 % Eosinophils (%) (Auto) 1.9 % Basophils (%) (Auto) 0.4 % Neutrophils # (Auto) 2.78 K/uL Lymphocytes # (Auto) 1.87 K/uL Monocytes # (Auto) 0.55 K/uL Eosinophils # (Auto) 0.10 K/uL Basophils # (Auto) 0.02 K/uL RDW Standard Deviation 42.1 fL RDW Coefficient of Variation 12.8 % Immature Granulocyte % (Auto) 0.2 % Immature Granulocyte # (Auto) 0.01 K/uL Imaging: Echocardiography shows low normal left ventricular systolic function with no wall motion abnormalities EKG: An electrocardiogram on arrival to the emergency room demonstrates sinus rhythm at 67 bpm, there is inferior T-wave inversion and diffuse J-point elevation. There are no prior electrocardiograms for comparison. Several more elective cardiac stent in the emergency room are not much different, and electrocardiogram this morning demonstrates sinus bradycardia at 48 bpm with improved inferior T waves and continued J-point elevation throughout. The QT interval does not appear to be prolonged and there is no evidence of Brugada syndrome. Telemetry reviewed: Sinus rhythm and sinus bradycardia, no significant arrhythmia Assessment & Plan #1. Syncope: The cause is not clear. It could have been a vagal event as he was drinking water, but is never happened before and this would not be a typical presentation for that. In addition it would be unlikely that he would have cardiac enzyme abnormalities with a vagal event. It is concerning that this could've been an arrhythmia, the cardiac enzyme abnormalities in the descending pattern suggest there may have been some relatively prolonged period of hypoperfusion. This could be a tachycardia arrhythmia) such as SVT) or conceivably bradycardia. Options include monitoring for recurrence, however that could be dangerous, versus provocative testing. I discussed options with him and we both feel the provocative testing is probably the safest alternative. I would like to perform electrophysiologic study, I discussed the indications, procedure, risks and alternatives with him and he understands and agrees to proceed. We will plan on doing that today. If the electrophysiology study is negative then I would consider loop recorder implantation. Consent obtained. #2. J-point elevation: We don't have a prior electrocardiogram but these findings can be found in normal individuals. It could also represent pericarditis or myocarditis, but that is difficult to diagnose. At this point I would continue to follow the electrocardiogram to see if there is any type of evolution. Thank you for allowing me to participate in his care.
--- NOTE | 2017-05-31 12:06 | Procedure Note ---
Pre-Mod Sedation Assessment General Date of Moderate Sedation: May 31, 2017. Vital Signs: Vital Signs Past 12 Hours Date Time Temp Pulse Resp B/P (MAP) Pulse Ox O2 Delivery O2 Flow Rate FiO2 05/31/17 11:36 37.0 54 18 126/70 (88) 97 Room Air 05/31/17 08:00 97 Room Air 05/31/17 07:24 36.5 49 18 117/70 (86) 97 Room Air 05/31/17 04:00 Room Air 05/31/17 02:48 36.8 62 17 144/79 (100) 97 Room Air Review Cardiovascular: regular rate, rhythm, no edema, no gallop, no murmur, normal peripheral pulses Abdomen: normal bowel sounds, non tender, no organomegaly, no pulsatile mass Lungs: chest non-tender, lungs clear, normal breath sounds, no respiratory distress, no accessory muscle use Pre-Sedation Airway Assessment Oral Cavity: WNL Smoking Status: Current Every Day Smoker (since age 16, about a pack every 3 days) Procedure Planning Contraindications-for Mod Sed: None Yes Notes The planned sedation has been discussed with the patient and consent obtained. I have identified the patient, determined the appropriateness of sedation and have assessed the patient immediately prior to the procedure. All medicine(s) and interventions are by my order.
[2017-05-31] MEDS ORDERED: FENTANYL CITRATE INJ 50 MCG/1 ML 2 ML VIAL ONE ×2 (12:40→12:56)
[2017-05-31] MEDS ORDERED: MIDAZOLAM HCL 5 MG/ML 1 ML VIAL ONE ×2 (12:40→12:56)
[2017-05-31] MEDS ORDERED: ATROPINE SULFATE 0.1 MG/ML 10 ML SYR ONE (13:27)
--- NOTE | 2017-05-31 13:50 | Cardiology Procedure Brief Nt ---
Preliminary Cardiology Note Procedure Date May 31, 2017. Pre-Procedure Diagnosis Syncope Post-Procedure Diagnosis Same Procedure(s) Performed 3 catheter EP study with drug stim (atropine) Glue Mounter Operator Sharona Sales Representative Graphic Art(s) None Estimated Blood Loss 30 cc Preliminary Findings High vagal tone at baseline. Normal study, no inducible arrhythmia, no BPT or dual AV mylene pathways Recommendations Loop recorder Specimens None Anesthesia Local with sedation Complication(s) None Disposition PCU
--- NOTE | 2017-05-31 13:52 | Procedure Note ---
Post-Mod Sedation Assessment General Date of Moderate Sedation May 31, 2017. Vital Signs: Vital Signs Past 12 Hours Date Time Temp Pulse Resp B/P (MAP) Pulse Ox O2 Delivery O2 Flow Rate FiO2 05/31/17 12:00 97 Room Air 05/31/17 11:36 37.0 54 18 126/70 (88) 97 Room Air 05/31/17 08:00 97 Room Air 05/31/17 07:24 36.5 49 18 117/70 (86) 97 Room Air 05/31/17 04:00 Room Air 05/31/17 02:48 36.8 62 17 144/79 (100) 97 Room Air Review - Discharge Criteria Vital Signs Stable: Yes Alert/Oriented/Conversant: Yes Returned to Baseline Mental St: Yes Nausea Absent/Minimal: Yes Pain/Discomfort/Absent/Minimal: Yes Normal/Baseline Respirations: Yes Active Bleeding?: No
[2017-05-31] MEDS ORDERED: ACETAMINOPHEN 325 MG TAB PO PRN (14:00)
[2017-05-31 16:32] LABS: LYME DISEASE AB IGG NEG (NEG); LYME DISEASE AB IGM NEG (NEG)
--- NOTE | 2017-05-31 18:25 | Hospitalist Progress Note ---
Hospitalist Progress Note Date of Service May 31, 2017. Subjective Pt evaluation today including: conversation w/ patient, physical exam, conversation w/ market research consultant (Cardio/EP) Just returned from EP study and had no inducible arrhythmia. Only SB, NSR, PVCs on tele overnight. Pt denies any complaints. No CP, no SOB, no lightheadedness. No nausea. All Other Systems: Reviewed and Negative Objective Vital Signs Date Time Temp Pulse Resp B/P (MAP) Pulse Ox O2 Delivery O2 Flow Rate FiO2 05/31/17 14:00 78 16 154/104 (121) 96 Room Air 05/31/17 13:45 82 18 155/99 (117) 100 Mask 4 05/31/17 12:00 97 Room Air 05/31/17 11:36 37.0 54 18 126/70 (88) 97 Room Air 05/31/17 08:00 97 Room Air 05/31/17 07:24 36.5 49 18 117/70 (86) 97 Room Air 05/31/17 04:00 Room Air 05/31/17 02:48 36.8 62 17 144/79 (100) 97 Room Air 05/31/17 00:00 Room Air 05/30/17 23:06 36.9 63 18 129/79 (96) 97 Room Air 05/30/17 20:00 Room Air 05/30/17 19:54 36.7 60 18 132/81 (98) 97 Room Air 05/30/17 16:00 Room Air 05/30/17 15:41 37.1 53 18 141/96 (111) 98 Room Air Physical Exam General Appearance: WD/WN, no apparent distress Eyes: normal inspection, sclerae normal ENT: hearing grossly normal Neck: trachea midline Respiratory/Chest: lungs clear, normal breath sounds, no respiratory distress, no accessory muscle use Cardiovascular: regular rate, rhythm, no edema, no gallop, no murmur Abdomen: normal bowel sounds, non tender, soft Extremities: non-tender, no pedal edema, no calf tenderness, + pertinent finding (right elbow with superficial abrasion, FROM of elbow, no ttp over elbow except directly over wound, full strength right arm throughout) Neurologic/Psychiatric: alert, normal mood/affect, oriented x 3 Skin: normal color, warm/dry, no rash Laboratory Results Last 24 Hours Test 05/30/17 17:15 05/30/17 23:04 8/15/17 04:37 05/31/17 14:24 Total Creatine Kinase 603 U/L 473 U/L 423 U/L Creatine Kinase MB 2.5 ng/ml 1.9 ng/ml 1.6 ng/ml Creatine Kinase MB Ratio 0.4 0.4 0.4 Troponin I 0.206 ng/ml 0.176 ng/ml 0.162 ng/ml White Blood Count 5.33 K/uL Red Blood Count 4.66 M/uL Hemoglobin 14.8 g/dL Hematocrit 42.1 % Mean Corpuscular Volume 90.3 fL Mean Corpuscular Hemoglobin 31.8 pg Mean Corpuscular Hemoglobin Concent 35.2 g/dl Platelet Count 203 K/uL Mean Platelet Volume 8.5 fL Neutrophils (%) (Auto) 52.1 % Lymphocytes (%) (Auto) 35.1 % Monocytes (%) (Auto) 10.3 % Eosinophils (%) (Auto) 1.9 % Basophils (%) (Auto) 0.4 % Neutrophils # (Auto) 2.78 K/uL Lymphocytes # (Auto) 1.87 K/uL Monocytes # (Auto) 0.55 K/uL Eosinophils # (Auto) 0.10 K/uL Basophils # (Auto) 0.02 K/uL RDW Standard Deviation 42.1 fL RDW Coefficient of Variation 12.8 % Immature Granulocyte % (Auto) 0.2 % Immature Granulocyte # (Auto) 0.01 K/uL Assessment and Plan This patient is a 31-year-old otherwise healthy male who presented with syncope without any prodromal symptoms. Syncope, nonspecific ECG changes, elevated troponin/demand ischemia-needs work up for syncope to include ruling out ventricular arrhythmias as a cause. He is completely asymptomatic otherwise. D-dimer is negative and without absence of hypoxia, tachycardia, or chest pain, the likelihood of pulmonary embolism is next to nothing. Orthostatic vital signs in the ER are normal. Elevated troponin is 0.2 on admission--> peaked at 0.275 and then trended downward, CK-MB and CPK also elevated and also trending downward. A heart alert was not called for the possible ST elevation on ECG as patient was completely asymptomatic. Risk for coronary artery disease is quite low and his only risk factor is smoking. Likely demand ischemia after syncope with arrhythmia or prolonged hypotensive episode perhaps? EP study with no inducible arrhythmia on 8/15, had high vagal tone. 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
[2017-05-31] MEDS ORDERED: NURSING VERBAL MED ORDER ONE (21:30)
[2017-06-01 03:10] VITALS: BP 152/94; PULSE 46; TEMP 36.8; O2SAT 97
[2017-06-01] MEDS: HEPARIN SOD 5000 UNIT/0.5 ML CARP SQ SCH ×2 (05:19→14:05)
[2017-06-01] MEDS ORDERED: CEFAZOLIN SOD 2000 MG in DEXTROSE 5% 50ML IV SCH (06:00)
[2017-06-01] MEDS ORDERED: LACTATED RINGER'S 1000ML 1,000 ML IV ONE (06:41)
[2017-06-01 07:07] VITALS: BP 144/80; PULSE 54; TEMP 37.2; O2SAT 99
[2017-06-01 07:43] LABS: BASO % 0.2 %; BASO ABS # 0.01 K/uL (0-0.2); COMPLETE YES; EOS % 1.4 %; HEMATOCRIT 44.4 % (42-52); IG% 0.2 %; LYMPH % 27.9 %; LYMPH ABS # 1.38 K/uL (1.2-3.4); MEAN CELL VOLUME 89.5 fL (80-100); MEAN CORPUSCULAR HEMOGLOBIN 31.7 pg (25-34); MEAN CORPUSCULAR HGB CONC 35.4 g/dl (32-36); MEAN PLATELET VOLUME 8.4 fL (7.4-10.4); MONO % 7.1 %; NEUT % 63.2 %; PLATELET COUNT 214 K/uL (130-400); RED BLOOD COUNT 4.96 M/uL (4.7-6.1); WHITE BLOOD COUNT 4.95 K/uL (4.8-10.8)
[2017-06-01 08:00] VITALS: O2SAT 97
[2017-06-01 08:11] LABS: BUN/CREATININE RATIO 10.4 (10-20); CALCIUM 9.2 mg/dl (8.5-10.1); CREATININE 1.1 mg/dl (0.60-1.40); MAGNESIUM 1.8 mg/dl (1.8-2.4); POTASSIUM 4.5 mmol/L (3.5-5.1)
[2017-06-01] MEDS: ASPIRIN 81 MG ECTAB PO SCH (08:11)
[2017-06-01 08:22] LABS: THYROID STIMULATING HORMONE 1.77 uIu/ml (0.300-4.500)
[2017-06-01] MEDS ORDERED: LIDOCAINE HCL 1% 20 ML VIAL ONE (08:30)
[2017-06-01] MEDS ORDERED: MIDAZOLAM HCL 1 MG/ML 2ML VIAL ONE (08:43)
[2017-06-01] MEDS ORDERED: FENTANYL CITRATE INJ 50 MCG/1 ML 2 ML VIAL ONE (08:43)
--- NOTE | 2017-06-01 09:04 | Cardiology Follow-Up ---
Subjective Date of Service: Jun 01, 2017. Pt evaluation today including: conversation w/ patient, physical exam, lab review, review of studies, review of inpatient medication list History of Present Illness This is a very pleasant and very physically active incarcerated gentleman. He presented with an episode of syncope on 05/30/2017. He has never had syncope before, he was feeling normal when he was sitting in it truck, took a drink of water and then fell out of the truck. He doesn't remember much else except that he heard people talking to him and was having trouble answering. He thinks it only was a few minutes before he felt normal again although his colleagues kept him on the ground until the ambulance came. Apparently it was witnessed by guards who reported that he was unresponsive for approximately 5 minutes, and there is no evidence of seizure activity. He reports no palpitations either during this episode or in the past, no chest discomfort, no shortness of breath and no presyncopal events in the past. On evaluation in the emergency room he was hypertensive, his electrocardiogram showed inferior T-wave inversion in anterolateral ST elevation but not suggestive of an acute myocardial infarction. Echocardiography did not show wall motion abnormalities and he had a low normal left ventricular function. Cardiac enzymes were abnormal with a point of care troponin of 0.2 at around 10 AM, at 11 AM on a regular blood test the troponin was 0.275 and then a decrease over the next 3 measurements to 0.162 at 4 AM today. CPK was also elevated, 713 shortly after arrival in the ER and 423 yesterday morning. At electrophysiologic study yesterday there was no inducible arrhythmia and no cause of his syncope identified. We're therefore going to implant a loop recorder. Yesterday I discussed the indications, procedure, risks and alternatives with him and he understands and agrees to proceed. Consent obtained yesterday. He agrees to the procedure today. Social History Smoking Status: Current Every Day Smoker (since age 16, about a pack every 3 days) History of Alcohol Use: No Review of Systems Respiratory: No cough, No wheezing, No shortness of breath, No dyspnea on exertion Cardiac: + see HPI, No chest pain, No orthopnea, No PND, No edema, No palpitations Objective Vital Signs Past 12 Hours Date Time Temp Pulse Resp B/P (MAP) Pulse Ox O2 Delivery O2 Flow Rate FiO2 06/01/17 08:00 97 Room Air 8/16/17 07:07 37.2 54 15 144/80 (101) 99 Room Air 06/01/17 04:00 Room Air 06/01/17 03:10 36.8 46 17 152/94 (113) 97 Room Air 06/01/17 00:00 Room Air 05/31/17 23:47 36.6 42 16 166/96 (119) 98 Room Air Last Recorded Weight-Kilograms: 91.000 Physical Exam Constitutional: General Apperance: heathly-appearing Level of Distress: NAD Lungs: Respiratory effort: no dyspnea, good air movement Auscultation: breath sounds normal, no wheezing Cardiovascular: Heart Auscultation: RRR, no murmurs, no rubs, no gallops Peripheral Pulses: Bruits: none appreciated Extremities: no edema Data Laboratory Results: Last 24 Hours Test 05/31/17 14:40 06/01/17 07:29 Erythrocyte Sedimentation Rate 9 mm/hr Lyme Disease IgG Antibody NEG Lyme Disease IgM Antibody NEG White Blood Count 4.95 K/uL Red Blood Count 4.96 M/uL Hemoglobin 15.7 g/dL Hematocrit 44.4 % Mean Corpuscular Volume 89.5 fL Mean Corpuscular Hemoglobin 31.7 pg Mean Corpuscular Hemoglobin Concent 35.4 g/dl Platelet Count 214 K/uL Mean Platelet Volume 8.4 fL Neutrophils (%) (Auto) 63.2 % Lymphocytes (%) (Auto) 27.9 % Monocytes (%) (Auto) 7.1 % Eosinophils (%) (Auto) 1.4 % Basophils (%) (Auto) 0.2 % Neutrophils # (Auto) 3.13 K/uL Lymphocytes # (Auto) 1.38 K/uL Monocytes # (Auto) 0.35 K/uL Eosinophils # (Auto) 0.07 K/uL Basophils # (Auto) 0.01 K/uL RDW Standard Deviation 40.9 fL RDW Coefficient of Variation 12.5 % Immature Granulocyte % (Auto) 0.2 % Immature Granulocyte # (Auto) 0.01 K/uL Sodium Level 136 mmol/L Potassium Level 4.5 mmol/L Chloride Level 105 mmol/L Carbon Dioxide Level 28 mmol/L Anion Gap 3.0 mmol/L Blood Urea Nitrogen 11 mg/dl Creatinine 1.10 mg/dl Est Creatinine Clear Calc Drug Dose 115.3 ml/min Estimated GFR () 104.6 Estimated GFR (Non- 90.2 BUN/Creatinine Ratio 10.4 Random Glucose 82 mg/dl Calcium Level 9.2 mg/dl Phosphorus Level 3.0 mg/dl Magnesium Level 1.8 mg/dl Thyroid Stimulating Hormone (TSH) 1.770 uIu/ml Telemetry reviewed: Sinus rhythm, sinus bradycardia, heart rates in the high 30s at times overnight. Assessment and Plan #1. Syncope: The cause is not clear. It could have been a vagal event as he was drinking water, but is never happened before and this would not be a typical presentation for that. In addition it would be unlikely that he would have cardiac enzyme abnormalities with a vagal event. It is concerning that this could've been an arrhythmia, the cardiac enzyme abnormalities in the descending pattern suggest there may have been some relatively prolonged period of hypoperfusion. This could be a tachycardia arrhythmia) such as SVT) or conceivably bradycardia. With a negative electrophysiologic study there is little else we can do to identify a cause. We're going implant a loop recorder to monitor for further episodes or arrhythmia suggestive of a cause. #2. J-point elevation: We don't have a prior electrocardiogram but these findings can be found in normal individuals. It could also represent pericarditis or myocarditis, but that is difficult to diagnose. At this point I would continue to follow the electrocardiogram to see if there is any type of evolution. Thank you for allowing me to participate in his care.
--- NOTE | 2017-06-01 09:27 | [facility] Operative Report ---
Operative Report Operative Date Jun 01, 2017. Pre-Operative Diagnosis Syncope Post-Operative Diagnosis same Procedure(s) Performed Loop recorder implantation Surgeon Dr. Tabor Estimated Blood Loss 5 cc Findings Successful loop recorder implantation Specimens None Anesthesia local with sedation Complication(s) None Disposition PCU Description of Procedure After obtaining informed consent for the procedure, the patient was brought to the laboratory having had nothing by mouth after midnight. The patient was prepped and draped in the standard sterile manner for a loop recorder implantation. An area at the fourth left intercostal space and 1 cm left of the left sternal border was infiltrated with 1% lidocaine local anesthetic and a 0.5 cm incision was made through the skin. Using the loop recorder insertion tool the loop recorder was inserted through the incision at a 45 downward and leftward angle. The incision was closed with a subcutaneous continuous closure of 4-0 Vicryl followed by a running subcuticular skin closure of 4-0 Vicryl. Steri- Strips were applied and bacitracin ointment was placed on the incision. A dressing was applied. I attest to the content of the Intraoperative Record and any orders documented therein. Any exceptions are noted below.
--- NOTE | 2017-06-01 09:28 | Procedure Note ---
Post-Mod Sedation Assessment General Date of Moderate Sedation Jun 01, 2017. Vital Signs: Vital Signs Past 12 Hours Date Time Temp Pulse Resp B/P (MAP) Pulse Ox O2 Delivery O2 Flow Rate FiO2 06/01/17 08:00 97 Room Air 06/01/17 07:07 37.2 54 15 144/80 (101) 99 Room Air 06/01/17 04:00 Room Air 06/01/17 03:10 36.8 46 17 152/94 (113) 97 Room Air 06/01/17 00:00 Room Air 05/31/17 23:47 36.6 42 16 166/96 (119) 98 Room Air Review - Discharge Criteria Vital Signs Stable: Yes Alert/Oriented/Conversant: Yes Returned to Baseline Mental St: Yes Nausea Absent/Minimal: Yes Pain/Discomfort/Absent/Minimal: Yes Normal/Baseline Respirations: Yes Active Bleeding?: No
[2017-06-01 11:20] VITALS: BP 137/68; PULSE 53; TEMP 37.5; O2SAT 96
[2017-06-01 12:00] VITALS: O2SAT 97
[2017-06-01] MEDS ORDERED: ACET-1047 PO (14:12)
--- NOTE | 2017-06-01 14:18 | Discharge Instructions ---
Discharge Instructions Date of Service Jun 01, 2017. Admission Reason for Admission: Syncope Discharge Discharge Diagnosis / Problem: Syncope Discharge Goals Goal(s): Improve disease control, Diagnostic testing, Therapeutic intervention Activity Recommendations Activity Limitations: resume your previous activity Lifting Limitations: none Exercise/Sports Limitations: none Shower/Bathe: keep incision dry (for 2 days. After 2 days, you can shower and then remove the dressing but keep the steri strips in place until they fall off on their own. You can gently cleanse the wound and pat it dry after that.) . Instructions / Follow-Up Instructions / Follow-Up You were admitted after passing out (called "Syncope"). Your heart muscle enzyme called "troponin" was elevated which is a sign of a brief lack of oxygen to the heart muscle. You did not have a heart attack, but it is unclear what caused you to pass out. You had an Electrophysiology study to look for abnormal electrical pathways of the heart and this was normal. You then had a Loop Recorder placed under the skin in your chest. This device should be activated by you anytime you feel lightheaded, heart palpitations or pounding of the heart, or for any time you just don't feel "right." This device can remain in place for up to 3 years. You should follow up with the Supervisor Engraving, Dr. Lozano, in 1 month. Current Hospital Diet Patient's current hospital diet: Regular Diet Discharge Diet Recommended Diet: Regular Diet Procedures Procedures Performed: EP study ECHO Loop Recorder implantation Chest xray Pending Studies Studies pending at discharge: no Laboratory Results Last 24 Hours Test 05/31/17 14:40 06/01/17 07:29 Erythrocyte Sedimentation Rate 9 mm/hr Lyme Disease IgG Antibody NEG Lyme Disease IgM Antibody NEG White Blood Count 4.95 K/uL Red Blood Count 4.96 M/uL Hemoglobin 15.7 g/dL Hematocrit 44.4 % Mean Corpuscular Volume 89.5 fL Mean Corpuscular Hemoglobin 31.7 pg Mean Corpuscular Hemoglobin Concent 35.4 g/dl Platelet Count 214 K/uL Mean Platelet Volume 8.4 fL Neutrophils (%) (Auto) 63.2 % Lymphocytes (%) (Auto) 27.9 % Monocytes (%) (Auto) 7.1 % Eosinophils (%) (Auto) 1.4 % Basophils (%) (Auto) 0.2 % Neutrophils # (Auto) 3.13 K/uL Lymphocytes # (Auto) 1.38 K/uL Monocytes # (Auto) 0.35 K/uL Eosinophils # (Auto) 0.07 K/uL Basophils # (Auto) 0.01 K/uL RDW Standard Deviation 40.9 fL RDW Coefficient of Variation 12.5 % Immature Granulocyte % (Auto) 0.2 % Immature Granulocyte # (Auto) 0.01 K/uL Sodium Level 136 mmol/L Potassium Level 4.5 mmol/L Chloride Level 105 mmol/L Carbon Dioxide Level 28 mmol/L Anion Gap 3.0 mmol/L Blood Urea Nitrogen 11 mg/dl Creatinine 1.10 mg/dl Est Creatinine Clear Calc Drug Dose 115.3 ml/min Estimated GFR () 104.6 Estimated GFR (Non- 90.2 BUN/Creatinine Ratio 10.4 Random Glucose 82 mg/dl Calcium Level 9.2 mg/dl Phosphorus Level 3.0 mg/dl Magnesium Level 1.8 mg/dl Thyroid Stimulating Hormone (TSH) 1.770 uIu/ml Medical Emergencies . Who to Call and When: Medical Emergencies: If at any time you feel your situation is an emergency, please call 911 immediately. . Non-Emergent Contact Non-Emergency issues call your: Primary Care Provider, Supervisor [employer] Call Non-Emergent contact if: wound has increased drainage, wound has increased redness, wound has increased pain, you have any medication questions . . "Provider Documentation" section prepared by Indiana Gonzalez. . VTE Core Measure Inpt VTE Proph given/why not?: Unfractionated heparin SQ
[2017-06-01 14:26] VITALS: BP 137/68; PULSE 53; TEMP 37.5; O2SAT 97
--- NOTE | 2017-06-01 23:06 | Discharge Summary ---
Discharge Summary Date of Service Jun 01, 2017. Discharge Summary Admission Date: May 30, 2017 at 11:11 Discharge Date: Jun 01, 2017 Discharge Disposition: Home (Jail) Principal Diagnosis: Syncope Problems/Secondary Diagnoses: Elevated troponin/Demand ischemia Bradycardia Abnormal ECG Current Smoker Procedures: Loop Recorder implantation EP Study: High vagal tone at baseline. Normal study, no inducible arrhythmia, no BPT or dual AV mylene pathways ECHO: * 1. Normal left ventricular size with low-normal systolic function. Estimated EF 55%. No regional wall motion abnormalities. Mild left ventricular hypertrophy. No significant diastolic dysfunction. * 2. No significant valvular abnormalities. * 3. Normal estimated right ventricular systolic pressure; 20 mm Hg. CXR-negative Consultations: Cardiology Medication Reconciliation New Medications: Acetaminophen (Mapap) 325 Mg Tab 650 MG PO Q4H PRN for MILD PAIN for 7 Days Referrals At Discharge Follow up Referrals: [facility] Referral - Within a Month with Randal Tabor M.D. Discharge Exam Feeling well, had Loop Recorder placed today. Shelly po, no concerns Review of Systems: Constitutional: No fever, No chills Eyes: No problem reported ENT: No problem reported Respiratory: No problem reported Cardiovascular: No problem reported Abdomen: No problem reported Musculoskeletal: No problem reported Genitourinary - Male: No problem reported Neurologic: No problem reported Psychiatric: No problem reported Endocrine: No problem reported Hematologic / Lymphatic: No problem reported Integumentary: No problem reported Physical Exam: General Appearance: WD/WN, no apparent distress Eyes: normal inspection, sclerae normal ENT: hearing grossly normal Neck: trachea midline Respiratory/Chest: lungs clear, normal breath sounds, no respiratory distress, no accessory muscle use Cardiovascular: regular rate, rhythm, no edema, no gallop, no murmur, normal peripheral pulses, + pertinent finding (anterior left chest with dressing in place c/d/i) Abdomen / GI: normal bowel sounds, non tender, soft, no organomegaly, no pulsatile mass Extremities: normal inspection, no calf tenderness, no pedal edema Neurologic/Psychiatric: no motor/sensory deficits, alert, normal mood/affect , oriented x 3 Skin: normal color, warm/dry, no rash Hospital Course This patient is a 31-year-old otherwise healthy male who presented with syncope without any prodromal symptoms. Syncope, nonspecific ECG changes, elevated troponin/demand ischemia-admitted for work up for syncope to include ruling out ventricular arrhythmias as a cause. He is completely asymptomatic otherwise. D-dimer is negative and without absence of hypoxia, tachycardia, or chest pain, the likelihood of pulmonary embolism is next to nothing. Orthostatic vital signs in the ER are normal. Elevated troponin is 0.2 on admission--> peaked at 0.275 and then trended downward, CK-MB and CPK also elevated and also trending downward. A heart alert was not called for the possible ST elevation on ECG as patient was completely asymptomatic. Risk for coronary artery disease is quite low and his only risk factor is smoking. Likely demand ischemia after syncope with arrhythmia or prolonged hypotensive episode perhaps? Lyme titer negative, ESR normal at 9 EP study with no inducible arrhythmia on 05/31, had high vagal tone. ECHO 05/30 with normal LVEF 55%, mild LVH, no valvular abnormalities, no significant structural issues ECG not consistent with Brugada Syndrome Had Loop Recorder implanted on 06/01 so that any future events could be monitored -Appreciate cardiology consult- plan to f/u with Cardio in 1 month Right elbow abrasion/injury- no evidence on exam for fracture -keep wound clean and covered as per staffing clerk -consider xray if has worsening pain Current Smoker- needs continued counselling on smoking cessation Total Time Spent: Greater than 30 minutes This includes examination of the patient, discharge planning, medication reconciliation, and communication with other providers. Discharge Instructions Please refer to the electronic Patient Visit Report (Discharge Instructions) for additional information. Follow-Up Cardiology in 1 month PCP within 1-2 days Additional Copies To [facility]
[2017-06-02] MEDS ORDERED: CEFAZOLIN SOD 1000MG/55 ML D5W IV SCH (06:00)
== END 2017-06-01 15:01 | DRG 274 ==
LOC: C.EDA 09:35 → C.2T 11:11 → ENRESERV 11:25
PROVIDERS: ADMIT Family Medicine; ATTEND Family Medicine
PROC: 4A0234Z Measurement of Cardiac Electrical Activity, Percutaneous Approach (ICD-10-PCS; principal; 2017-05-31 12:30)
PROC: 4A023FZ Measurement of Cardiac Rhythm, Percutaneous Approach (ICD-10-PCS; principal; 2017-05-31 12:30)
PROC: 0JH602Z Insertion of Monitoring Device into Chest Subcutaneous Tissue and Fascia, Open Approach (ICD-10-PCS; 2017-06-01)
DX: I24.8 Other forms of acute ischemic heart disease (principal); R55 Syncope and collapse; R00.1 Bradycardia, unspecified; R94.31 Abnormal electrocardiogram [ECG] [EKG]; S50.312A Abrasion of left elbow, initial encounter; W17.89XA Other fall from one level to another, initial encounter; Y92.149 Unspecified place in prison as the place of occurrence of the external cause; F17.210 Nicotine dependence, cigarettes, uncomplicated